=== PATIENT | male | born 1970 | race Caucasian/White ===

== ENCOUNTER 2020-09-01 17:31 | Outpatient (CLI) | payer OTHER, SELFPAY | END 2020-09-01 17:32 | disposition home or self-care (01) | LOC: ANHCOVIDVC 17:31 | PROVIDERS: PCP Family Medicine | DX: Z23 Encounter for immunization (principal) | CPT/HCPCS: 0001A; 91300 ==

== ENCOUNTER 2020-09-22 17:31 | Outpatient (CLI) | payer OTHER, SELFPAY | END 2020-09-22 17:32 | disposition home or self-care (01) | LOC: ANHCOVIDVC 17:31 | PROVIDERS: PCP Family Medicine | DX: Z23 Encounter for immunization (principal) | CPT/HCPCS: 0002A; 91300 ==

== ENCOUNTER 2023-10-27 12:50 | Emergency (ER) | payer OTHER, SELFPAY ==
[2023-10-27 13:01] VITALS: BP 185/111; PULSE 95; RESP 18; TEMP 36.4; O2SAT 100
--- NOTE | 2023-10-27 13:11 | ED.URI ---
HPI - URI/Sore Throat General Chief Complaint: Upper Respiratory Infection Stated Complaint: Congestion Source: patient Mode of arrival: ambulatory Limitations: no limitations History of Present Illness HPI Narrative: 53 y/o male presented for c/o cough and chest congestion for 5 days. Cough is productive of clear or yellow sputum. Taking Delsym and Mucinex. Endorses occasional sob, but states it is better today. Denies cp, palpitations, wheezing, fatigee, n/v/d/f/c. Smokes 1ppd x30+ years. Of note, elevated BP on arrival. States he has hx HTN, but has not seen his pcp in a while. Related Data Allergies Allergy/AdvReac Type Severity Reaction Status Date / Time Penicillins Allergy Mild Unknown Unverified 10/27/23 13:02 Review of Systems Review of Systems: CONSTITUTIONAL: Denies body aches, fever, chills, or sweats. EYES: Denies visual changes, redness, or discharge. ENT: Reports rhinorrhea, congestion, denies sore throat, or otalgia. CARDIOVASCULAR: Denies chest pain, palpitations, or edema. RESPIRATORY: Reports cough, sob, denies wheezing. GASTROINTESTINAL: Denies abdominal pain, nausea, vomiting, or diarrhea. SKIN: Denies rash, itching, or wounds. MUSCULOSKELETAL: Denies back pain, joint pain, or myalgia. NEUROLOGIC: Denies headache, numbness, tingling, or weakness. All systems reviewed & are unremarkable except as noted in HPI and below PMFSH Past Medical History Medical History (Updated 10/27/23 @ 13:13 by Sultana Markham APRN) History of [id number] disease 1977 Hypertension Social History Social History (Updated 10/27/23 @ 13:20 by Sultana Markham APRN) Social History: Ronald is very confident in filling out medical forms and has not accepted any assistance in the last 12 months. Smoking packs per day: 1 Smoking cigarettes per day: 20.0 Years smoked: 30 Smoking pack-years: 30.00 Smoking status: Current every day smoker Tobacco type: cigarettes Lack of Transportation: No Lack of Food: Never True Current Housing: I Have Housing Concerned About Future Housing: No Difficulty Paying Gas/Electric Bills: No Difficulty Paying for Meds: No Currently Unemployed: No Education: High School Diploma/GED Difficulty w/ Childcare or Family Care: No Comments At time of signature, I have reviewed and agree with nursing past medical, surgical, social and family history unless otherwise noted. Please see nursing chart for further information. There is no relevant family history pertinent to the presenting complaint Exam Narrative: GENERAL: Well-appearing, in no acute distress. EYES: EOMI. No redness or drainage. Conjunctivae normal. ENT: Mucous membranes pink and moist. No rhinorrhea. TMs normal bilaterally. Throat normal. Uvula midline. NECK: Normal AROM. Supple. CHEST: No respiratory distress. Lungs clear to all valenzuela. HEART: Regular rate and rhythm. No murmur appreciated. EXTREMITIES: Normal range of motion. No edema. SKIN: Warm, dry, no rash. Capillary refill normal. Normal skin turgor. NEURO: Alert and oriented x3. Gait steady. PSYCH: Normal affect. Course Course Emergency Course: Patient is aware of diagnosis, understands and agrees to treatment plan. Anticipatory guidance given. Patient agrees to follow-up as directed and is aware of reasons to seek care at the emergency department. Portions of this record may have been created with voice recognition software Level of Care: Express Care Visit Vital Signs Vital signs: Vital Signs Temperature 97.6 F 10/27/23 13:01 Pulse Rate 95 10/27/23 13:01 Respiratory Rate 18 10/27/23 13:01 Blood Pressure 185/111 H 10/27/23 13:01 Pulse Oximetry 100 10/27/23 13:01 Oxygen Delivery Room Air 10/27/23 13:01 Temperature 97.6 F 10/27/23 13:01 Pulse Rate 95 10/27/23 13:01 Respiratory Rate 18 10/27/23 13:01 Blood Pressure 185/111 H 10/27/23 13:01 Pulse Oximetry 100
[2023-10-27 13:13] VITALS: BP 156/104; PULSE 98
== END 2023-10-27 13:20 | disposition home or self-care (01) ==
PROVIDERS: Emergency Provider Nurse Practitioner Family; PCP Family Medicine
DX: J40 Bronchitis, not specified as acute or chronic (principal); I10 Essential (primary) hypertension; F17.210 Nicotine dependence, cigarettes, uncomplicated
CPT/HCPCS: 99213; G0463